=== PATIENT | male | born 1935 | race Caucasian/White ===

== ENCOUNTER 2018-08-28 12:03 | Emergency (ER) | payer MEDICARE, OTHER ==
[~2018-08-28] VITALS: Ht 172.7 cm; Wt 94.3 kg
[~2018-08-28 12:03] MED LIST: ASPIRIN81 MG PO
--- OUTSIDE RECORDS SUMMARY | 2018-08-28 12:04 | XMS REPORT ---
[facility] Address Unknown Phone Unavailable Care Team Providers Care Computer Forensic Examiner Name Role Phone Unavailable Unavailable Payers Payer Name Policy Type Policy Number Effective Date Expiration Date Problems This patient has no known problems. Allergies, Adverse Reactions, Alerts Allergy Name Allergy Type Status Severity Reaction(s) Onset Date Inactive Date Treating Clinician Comments No Known Allergies DA Active U 2018-08-27 00:00:00 No Known Drug Intolerances DA Active U 2012-01-08 00:00:00 Medications This patient has no known medications. Results Test Description Test Time Test Comments Text Results Atomic Results Result Comments URINALYSIS COMPLETE 2018-08-28 00:34:00 UA COLOR (test code=COLU) YELLOW YELLOW UA APPEARANCE (test code=APPU) HAZY CLEAR UA GLUCOSE DIPSTICK (test code=DGLUU) 50 (Trace) mg/dL NEGATIVE UA BILIRUBIN DIPSTICK (test code=BILU) 1 mg/dL (1+) mg/dL NEGATIVE UA KETONE DIPSTICK (test code=KETU) 5 (Trace) mg/dL NEGATIVE UA SPECIFIC GRAVITY (test code=SGU) 1.015 1.001-1.035 UA BLOOD DIPSTICK (test code=SONDRA) 25 (1+) Alex/uL NEGATIVE UA PH DIPSTICK (test code=SHIRLEY) 5.0 5.0-8.0 UA PROTEIN DIPSTICK (test code=PROU) 30 (1+) mg/dL Neg-15 UA UROBILINIOGEN DIPSTICK (test code=URO) 1 mg/dL 0.0-0.2 UA NITRITE DIPSTICK (test code=REMI) NEGATIVE NEGATIVE UA LEUKOCYTE ESTERASE DIPSTICK (test code=LEUU) 25 (Trace) uL NEGATIVE UA WBC (test code=WBCU) 0-5 per HPF 0-5 IN SOME URINARY TRACT INFECTIONS THERE MAY NOT BE ENOUGHWBCs IN THE URINE TO TRIGGER AN AUTOMATIC (REFLEX) URINECULTURE. A SEPERATE ORDER FOR URINE CULTURE IS RECOMMENDEDIF THERE IS STRONG SUPPORT FOR A URINARY TRACT INFECTIONCLINICALLY. UA RBC (test code=RBCU) 0-2 per HPF 0-5 UA EPITHELIAL CELLS (test code=EPIU) None seen per HPF Few UA BACTERIA (test code=BACU) TRACE per HPF NONE Urine Source? Clean CatchURINALYSIS [id number] 00:32:00* Test Item Value Reference Range Comments UA COLOR (test code=COLU) YELLOW YELLOW UA APPEARANCE (test code=APPU) HAZY CLEAR UA GLUCOSE DIPSTICK (test code=DGLUU) 50 (Trace) mg/dL NEGATIVE UA BILIRUBIN DIPSTICK (test code=BILU) 1 mg/dL (1+) mg/dL NEGATIVE UA KETONE DIPSTICK (test code=KETU) 5 (Trace) mg/dL NEGATIVE UA SPECIFIC GRAVITY (test code=SGU) 1.015 1.001-1.035 UA BLOOD DIPSTICK (test code=SONDRA) 25 (1+) Alex/uL NEGATIVE UA PH DIPSTICK (test code=SHIRLEY) 5.0 5.0-8.0 UA PROTEIN DIPSTICK (test code=PROU) 30 (1+) mg/dL Neg-15 UA UROBILINIOGEN DIPSTICK (test code=URO) 1 mg/dL 0.0-0.2 UA NITRITE DIPSTICK (test code=REMI) NEGATIVE NEGATIVE UA LEUKOCYTE ESTERASE DIPSTICK (test code=LEUU) 25 (Trace) uL NEGATIVE UA WBC (test code=WBCU) per HPF 0-5 Urine Source? Clean CatchBASIC METABOLIC [id number] 23:54:00* Test Item Value Reference Range Comments SODIUM (test code=NA) 138 mmol/L 135-148 POTASSIUM (test code=K) 3.7 mmol/L 3.5-5.1 CHLORIDE (test code=CL) 100 mmol/L 101-109 CARBON DIOXIDE (test code=CO2) 27.8 mmol/L 21-32 ANION GAP (test code=GAP) 14 mmol/L 10-20 GLUCOSE (test code=GLU) 198 mg/dL 74-106 BLOOD UREA NITROGEN (test code=BUN) 21 mg/dL 3-21 GLOMERULAR FILTRATION RATE (test code=GFR) > 60 mL/min >=60 Estimated GFR by using Modified MDRD formula.Chronic kidney disease is defined as either kidney damageor GFR <60 mL/min/1.73 m2 for >3 months. CREATININE (test code=CREAT) 1.15 mg/dL 0.55-1.3 BUN/CREATININE RATIO (test code=BUN/CREA) 18.3 10-20 CALCIUM (test code=CA) 8.3 mg/dL 8.4-10.2 HEPATIC FUNCTION [id number] 23:54:00* Test Item Value Reference Range Comments TOTAL PROTEIN (test code=PROT) 7.7 g/dL 6.5-8.4 ALBUMIN (test code=ALB) 3.5 g/dL 3.4-4.8 GLOBULIN (test code=GLOB) 4.2 G/DL 1-10 ALBUMIN/GLOBULIN RATIO (test code=A/G) 0.8 RATIO 0.75-1.50 BILIRUBIN TOTAL (test code=BILT) 0.40 mg/dL 0.0-1.0 BILIRUBIN DIRECT (test code=BILD) 0.10 mg/dL 0.0-0.30 SGOT/AST (test code=AST) 21 U/L 6-32 SGPT/ALT (test code=ALT) 29 U/L 12-78 Note: Change in REFERENCE RANGE due to new reagent method. ALKALINE PHOSPHATASE TOTAL (test code=ALKP) 83 U/L 38-126 [id number] 23:54:00* Test Item Value Reference Range Comments LIPASE (test code=LIP) 94 U/L 128-270 BASIC METABOLIC [id number] 23:44:00* Test Item Value Reference Range Comments SODIUM (test code=NA) 138 mmol/L 135-148 POTASSIUM (test code=K) 3.7 mmol/L 3.5-5.1 CHLORIDE (test code=CL) 100 mmol/L 101-109 CARBON DIOXIDE (test code=CO2) 27.8 mmol/L 21-32 ANION GAP (test code=GAP) 14 mmol/L 10-20 GLUCOSE (test code=GLU) 198 mg/dL 74-106 BLOOD UREA NITROGEN (test code=BUN) 21 mg/dL 3-21 GLOMERULAR FILTRATION RATE (test code=GFR) > 60 mL/min >=60 Estimated GFR by using Modified MDRD formula.Chronic kidney disease is defined as either kidney damageor GFR <60 mL/min/1.73 m2 for >3 months. CREATININE (test code=CREAT) 1.15 mg/dL 0.55-1.3 BUN/CREATININE RATIO (test code=BUN/CREA) 18.3 10-20 CALCIUM (test code=CA) 8.3 mg/dL 8.4-10.2 HEPATIC FUNCTION [id number] 23:44:00* Test Item Value Reference Range Comments TOTAL PROTEIN (test code=PROT) gram/dL 6.4-8.2 ALBUMIN (test code=ALB) g/dL 3.4-5.0 GLOBULIN (test code=GLOB) g/dL 2.7-4.2 ALBUMIN/GLOBULIN RATIO (test code=A/G) 0.75-1.50 BILIRUBIN TOTAL (test code=BILT) mg/dL 0.2-1.2 BILIRUBIN DIRECT (test code=BILD) mg/dL 0.0-0.20 SGOT/AST (test code=AST) IUnit/L 15-37 SGPT/ALT (test code=ALT) U/L 10-69 ALKALINE PHOSPHATASE TOTAL (test code=ALKP) IUnit/L 45-117 [id number] 23:44:00* Test Item Value Reference Range Comments LIPASE (test code=LIP) Unit/L 144-286 CBC W/O [id number] 23:31:00* Test Item Value Reference Range Comments WHITE BLOOD CELL (test code=WBC) 10.5 K/mm3 4.5-12.5 RED BLOOD CELL (test code=RBC) 4.38 mill/mm3 4.0-5.8 HEMOGLOBIN (test code=HGB) 13.3 gram/dL 13.0-17.5 HEMATOCRIT (test code=HCT) 40.4 % 42.0-52.0 MEAN CELL VOLUME (test code=MCV) 92.2 fL 80-98 MEAN CELL HGB (test code=MCH) 30.4 picogram 27.0-33.0 MEAN CELL HGB CONCETRATION (test code=MCHC) 32.9 gram/dL 33.0-36.0 RED CELL DISTRIBUTION WIDTH (test code=RDW) 15.2 % 11.6-16.2 RED CELL DISTRIBUTION WIDTH SD (test code=RDW-SD) 50.1 fL 39.2-49.5 PLATELET COUNT (test code=PLT) 221 K/mm3 150-450 MEAN PLATELET VOLUME (test code=MPV) 10.8 fL 6.7-11.0
[2018-08-28] MEDS ORDERED: KETOROLAC TROMETHAMINE 60 MG/2 ML VIAL IM ONE (14:15)
[2018-08-28 16:03] LABS: INFLUENZAE A&B ANTIGEN (RAPID) NEGATIVE (NEGATIVE)
--- NOTE | 2018-08-28 16:20 | Diagnostic Imaging Report ---
EXAMINATION: PA and lateral views of the chest. COMPARISON: None CLINICAL HISTORY: Cough DISCUSSION: Lines/tubes: None. Lungs: The lungs are well inflated and clear. No pneumonia or pulmonary edema. Pleura: No pleural effusion or pneumothorax. Heart and mediastinum: The cardiomediastinal silhouette is normal. Bones and soft tissues: No acute bony abnormalities. IMPRESSION: No acute cardiopulmonary abnormalities. Signed by: Dr. Roverto Michael M.D. on 08/28/2018 4:17 PM
[2018-08-28 16:24] LABS: STREPTOCOCCUS GRP A ANTIGEN NEGATIVE (NEGATIVE)
[2018-08-28] MEDS ORDERED: KETOROLAC TROMETHAMINE 30 MG/ML VIAL IM ONE (16:30)
[2018-08-28 16:53] VITALS: BP 164/91
== END 2018-08-28 17:06 | disposition home or self-care (01) ==
LOC: ER 12:03
DX: R50.9 Fever, unspecified (principal); R05 Cough; B34.9 Viral infection, unspecified; A08.0 Rotaviral enteritis; I10 Essential (primary) hypertension; E11.9 Type 2 diabetes mellitus without complications; E78.00 Pure hypercholesterolemia, unspecified
CPT/HCPCS: 36415; 71046; 82948; 83518; 87070; 87400; 99283; J1885

== ENCOUNTER 2019-03-25 18:02 | Observation (INO) | payer MEDICARE, OTHER ==
[~2019-03-25] VITALS: Ht 172.7 cm; Wt 95.4 kg
--- OUTSIDE RECORDS SUMMARY | 2019-03-25 18:05 | XMS REPORT | Clinical Summary ---
Author Author [facility] Address Unknown Phone Unavailable Care Team Providers Care Rental Representative Name Role Phone Olayinka Rowe MD PCP Allergies No Known Allergies Medications End Date Status Medication Sig Dispensed Refills Start Date Active atenolol (TENORMIN) 25 MG Take 25 mg by 0 tablet mouth daily. 9 Active atorvastatin (LIPITOR) 40 Take 40 mg by 0 MG tablet mouth daily. 9 Active celecoxib (CeleBREX) 200 0 MG capsule 9 Active fluticasone propionate 0 (CUTIVATE) 0.05 % cream 9 Active NOVOLOG FLEXPEN U-100 0 INSULIN 100 unit/mL (3 9 mL) insulin pen Active metFORMIN (GLUCOPHAGE) 0 1,000 mg tablet 9 Active pantoprazole (PROTONIX) 0 40 MG EC tablet 9 Active valACYclovir (VALTREX) 0 1000 MG tablet 9 Active valsartan-hydrochlorothia 0 zide (DIOVAN-HCT) 9 320-12.5 mg per tablet Active Problems Problem Noted Date Sensorineural hearing loss (SNHL) of both ears 01/07/2019 Bilateral impacted cerumen 01/07/2019 Encounters Care Team Description Date Type Specialty Fernie Benson MD Sensorineural hearing loss (SNHL) of both ears (Primary Dx); Bilateral impacted cerumen 01/07/2019 Office Visit Otolaryngology after 03/24/2018 Social History Date Tobacco Use Types Packs/Day Years Used Never Smoker Smokeless Tobacco: Never Used Drinks/Week oz/Week Comments Alcohol Use Never Alcohol Habits Answer Date Recorded How often do you have a drink containing alcohol? Never 01/07/2019 How many drinks containing alcohol do you have on Not asked a typical day when you are drinking? How often do you have six or more drinks on one Not asked occasion? Sex Assigned at Date Recorded Not on file Industry Job Start Date Occupation Not on file Not on file Not on file Travel End Travel History Travel Start No recent travel history available. Last Filed Vital Signs Reading Time Taken Comments Vital Sign 150/65 01/07/2019 9:41 AM CDT Blood Pressure 58 01/07/2019 9:41 AM CDT Pulse - - Temperature - - Respiratory Rate - - Oxygen Saturation - - Inhaled Oxygen Concentration 92.5 kg (204 lb) 01/07/2019 9:41 AM CDT Weight 172.7 cm (5' 8") 01/07/2019 9:41 AM CDT Height 31.02 01/07/2019 9:41 AM CDT Body Mass Index Plan of Treatment Care Team Description Date [place] [address] [id number] 07/01/2019 Office Visit Otolaryngology Health Maintenance Due Date Last Done Comments SHINGLES VACCINES (#1) 1984 65+ PNEUMOCOCCAL VACCINE 12/05/1999 (1 of 2 - PCV13) INFLUENZA VACCINE 02/11/2019 Procedures Comments Procedure Name Priority Date/Time Associated Diagnosis COMPREHENSIVE HEARING Routine 01/07/2019 Sensorineural hearing TEST 10:09 AM CDT loss (SNHL) of both ears after 03/24/2018 Results * Comprehensive hearing test (01/07/2019 10:09 AM CDT) after 03/24/2018 Insurance Type Payer Benefit Subscriber ID Effective Phone Address Plan / Dates Group HMO TEXAN[employer]US TEXAN[employer]US xxxxxxxxx [id number] MCR resent Advance Directives For more information, please contact: [phone] 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
[2019-03-25] MEDS ORDERED: ASPIRIN 81 MG CHEW TAB PO ONE (18:45)
[2019-03-25 18:58] LABS: BASOPHILS # (AUTO) 0.1 (0.0-0.1); BASOPHILS % 1.1 % (0.0-1.0); EOSINOPHILS # (AUTO) 0.3 (0.0-0.4); HEMOGLOBIN 11.5 g/dL (14.0-18.0); LYMPHOCYTES # (AUTO) 2.4 (1.0-3.2); LYMPHOCYTES % 26.6 % (18.0-39.1); MEAN CORPUSCULAR HEMOGLOBIN 28.5 pg (28-32); MEAN CORPUSCULAR HGB CONC 31.9 g/dL (31-35); MEAN CORPUSCULAR VOLUME 89.3 fL (81-99); MONOCYTES # (AUTO) 0.9 (0.2-0.8); MONOCYTES % 10.3 % (4.4-11.3); NEUTROPHILS # (AUTO) 5.3 (2.1-6.9); NEUTROPHILS % 58.7 % (38.7-80.0); PLATELET COUNT 270 x10e3/uL (140-360); RED BLOOD COUNT 4.03 x10e6/uL (4.3-5.7); RED CELL DISTRIBUTION WIDTH 14.8 % (11.7-14.4)
[2019-03-25 19:05] LABS: INR 0.89; PROTHROMBIN TIME 12.5 seconds (11.9-14.5)
[2019-03-25 19:06] LABS: PARTIAL THROMBOPLASTIN TIME 25.9 seconds (23.8-35.5)
[2019-03-25 19:15] LABS: ALBUMIN 3.4 g/dL (3.5-5.0); ALBUMIN/GLOBULIN RATIO 0.9 (0.8-2.0); ANION GAP 12.9 mmol/L (8-16); CREATININE, SERUM 1.18 mg/dL (0.72-1.25); POTASSIUM 3.9 mmol/L (3.5-5.1)
[2019-03-25 19:21] LABS: CREATINE KINASE MB 2.3 ng/mL (0-5.0)
--- NOTE | 2019-03-25 19:40 | Diagnostic Imaging Report ---
EXAMINATION: CHEST SINGLE (NOT PORTABLE) INDICATION: ^CHEST PAIN ^[id number] ^[id number] COMPARISON: Chest radiograph 08/28/2018 FINDINGS: AP view TUBES and LINES: None. LUNGS: Lungs are well inflated. Mild central pulmonary vascular congestion. No new consolidations. Minimal atelectasis in the left lower lobe. PLEURA: No pleural effusion or pneumothorax. HEART AND MEDIASTINUM: Prominent cardiac silhouette. Mild calcifications of the aortic arch. BONES AND SOFT TISSUES: No acute osseous lesion. Soft tissues are unremarkable. UPPER ABDOMEN: No free air under the diaphragm. IMPRESSION: Bilateral central pulmonary vascular congestion. Signed by: Dr. Amalia Osuna M.D. on 03/25/2019 7:37 PM
[2019-03-25] MEDS ORDERED: SODIUM CHLORIDE FLUSH 10 ML SYR INJ PRN (21:15)
[2019-03-25] MEDS ORDERED: MORPHINE SULFATE 2 MG/ML SYR 1ML IV PRN (21:15)
[2019-03-25] MEDS ORDERED: ONDANSETRON HCL INJ 2MG/ML 2ML 2 MG/ML VIAL IV PRN (21:15)
[2019-03-25] MEDS ORDERED: DEXTROSE 50% SYRINGE 50 ML IV PRN (21:15)
--- OUTSIDE RECORDS SUMMARY | 2019-03-25 21:20 | XMS REPORT | Clinical Summary ---
Author Author [facility] Address Unknown Phone Unavailable Care Team Providers Care Personal Clothing Laundry Aide Name Role Phone Olayinka Rowe MD PCP [...] Description Date [place] [address] [id number] 07/01/2019 Office Visit Otolaryngology Health Maintenance Due [...] Advance Directives For more information, please contact: [phone] Patient Improvement Leader Explanation Type Date Recorded Advance Directives, Living Will and Medical Power of Dental Treatment Coordinator
[2019-03-25] MEDS: FAMOTIDINE 20 MG/2 ML VIAL IV SCH (21:34)
[2019-03-25] MEDS ORDERED: VALSART/HCTZ PO (21:47)
[2019-03-25] MEDS ORDERED: ATENOLOL25 MG PO (21:47)
[2019-03-25] MEDS ORDERED: PANTOPRAZOLE SO40 MG PO (21:47)
[2019-03-25] MEDS ORDERED: METFORMIN HCL1000 MG PO (21:47)
[2019-03-25] MEDS ORDERED: CELEBREX200 MG PO (21:47)
[2019-03-25] MEDS ORDERED: LEVEMIR100 UNIT/1 SQ (21:47)
[2019-03-25] MEDS ORDERED: ULTRAM 50MG50 MG PO (21:47)
[2019-03-25] MEDS ORDERED: NOVOLOG100 UNITS1 SQ (21:47)
[2019-03-25] MEDS ORDERED: VALACYCLOVIR1000 MG PO (21:47)
[2019-03-25] MEDS ORDERED: ZYRTEC10 M3 PO (21:50)
[2019-03-25] MEDS ORDERED: MULTI-VITAMIN1 EACH PO (21:51)
[2019-03-25] MEDS: INSULIN REGULAR, HUMAN 100 UNIT/1 ML 3ML VIAL SQ SCH (22:38)
[2019-03-26] MEDS ORDERED: HYDRALAZINE HCL 20 MG/ML VIAL IV STA (02:12)
[2019-03-26 03:53] LABS: CREATINE KINASE MB 2.1 ng/mL (0-5.0)
--- NOTE | 2019-03-26 05:26 | NUR ---
pt request blood sugar be checked. pt asymptomatic. denies symptoms of low blood sugar. pt states that wants sugar checked because "im just curious what it is." bs checked per pt request, bs 268.
[2019-03-26 06:01] LABS: CREATINE KINASE 83 IU/L (30-200)
[2019-03-26] MEDS ORDERED: HYDRALAZINE HCL 20 MG/ML VIAL IV PRN (06:30)
[2019-03-26 06:31] LABS: CHOL/HDL RATIO 7.5 (3.9-4.7)
[2019-03-26] MEDS ORDERED: LORATADINE 10 MG TAB PO PRN (07:15)
[2019-03-26] MEDS: INSULIN REGULAR, HUMAN 100 UNIT/1 ML 3ML VIAL SQ SCH ×4 (07:37→22:33)
[2019-03-26] MEDS ORDERED: ASPIRIN 81 MG ENTERIC COATED PO SCH (09:00)
[2019-03-26] MEDS: FAMOTIDINE 20 MG/2 ML VIAL IV SCH ×2 (09:48→22:33)
[2019-03-26] MEDS: ASPIRIN 81 MG CHEW TAB PO SCH (09:51)
[2019-03-26] MEDS: PANTOPRAZOLE SOD 40 MG TABEC PO SCH (09:51)
[2019-03-26] MEDS: MULTIVITAMINS/MINERALS TAB PO SCH (09:53)
--- NOTE | 2019-03-26 11:11 | NUR ---
RECEIVED REPORT FROM DAYNA SANCHEZ; PT RESTING IN BED, SON AT BEDSIDE, NO NEEDS VOICED AT THIS TIME, BED LOW/LOCKED, SIDE RAILS UP, CALL LIGHT IN EASY REACH, WILL CONTINUE TO MONITOR.
--- NOTE | 2019-03-26 11:22 | NUR ---
PT VOICING CONCERNS WITH BLOOD PRESSURE GOING UP, MEDICATED PER eMAR.
--- NOTE | 2019-03-26 11:26 | NUR ---
PT VOICING CONCERNS, STATING HE HAS VOIDED 12 TIMES SINCE ARRIVAL AND THIS IS NOT HIS NORM, STATES "I'M NOT EVEN DRINKING THAT MUCH WATER", WILL CONTINUE TO MONITOR.
--- NOTE | 2019-03-26 11:35 | NUR ---
DR. LAM AT BEDSIDE AND UPDATING PT WITH PLAN OF CARE AND CONSULTATION WITH CARDIO FOR CONTINUITY OF CARE, PT AND SON AT BEDSIDE VERBALIZED UNDERSTANDING.
--- NOTE | 2019-03-26 11:58 | NUR ---
ECHOVASCULAR TECH AT BEDSIDE FOR EXAM AT THIS TIME.
[2019-03-26] MEDS: FUROSEMIDE 40 MG TAB PO SCH (12:40)
[2019-03-26] MEDS: VALSARTAN 160 MG TAB PO SCH (12:45)
[2019-03-26] MEDS: HYDROCHLOROTHIAZIDE 25 MG TAB PO SCH (12:45)
[2019-03-26 13:29] VITALS: BP 143/54
[2019-03-26 14:19] VITALS: BP 143/54
[2019-03-26 14:29] LABS: CREATINE KINASE MB 2.1 ng/mL (0-5.0)
--- NOTE | 2019-03-26 14:39 | NUR ---
notified regarding nurse monitoring rhythm. No new orders received at this time.
[2019-03-26 15:35] VITALS: BP 135/63
[2019-03-26] MEDS ORDERED: ENOXAPARIN 30 MG/0.3 ML SYR SC SCH (17:00)
--- NOTE | 2019-03-26 18:00 | Consultation ---
DATE OF CONSULTATION: Cardiology Consultation CHIEF COMPLAINT: The patient is an 83-year-old with shortness of breath. HISTORY OF PRESENT ILLNESS: The patient is an 83-year-old, who came to the emergency room with some dizziness and dyspnea. There was no reported chest pain. No nausea. No vomiting. No abdominal pain. No fevers. PAST MEDICAL HISTORY: Significant for: 1. Hypertension. 2. Diabetes mellitus. HOME MEDICATIONS: Include: 1. Atenolol. 2. Celebrex. 3. Insulin. 4. Metformin. 5. Protonix. 6. Valacyclovir. SOCIAL HISTORY: The patient does not drink, does not smoke. FAMILY HISTORY: There is no known family history of coronary artery disease. PHYSICAL EXAMINATION: GENERAL: The patient is a well-developed, well-nourished male, in no obvious distress. VITAL SIGNS: Included temperature of 98.8, blood pressure was 143/54, pulse was 79. HEAD, EARS, EYES, NOSE, AND THROAT: The patient's cranium was normocephalic and atraumatic. Extraocular muscles were intact. Sclerae were anicteric. Pupils were equal, round, reactive to light. There is no pallor or cyanosis of the oral mucosa. There is no erythema or edema of the throat. NECK: Supple. No jugular venous distention. No carotid bruits. CHEST: Clear to auscultation and percussion. CARDIAC: Demonstrated normal S1 and S2 with no murmurs, rubs, or gallops. ABDOMEN: Demonstrated good bowel sounds. No tenderness and no masses. EXTREMITIES: There is no clubbing, no cyanosis, and no edema. NEUROLOGIC: The patient was alert and oriented x3. Cranial nerves II through XII are intact. Motor strength was +5/+5 in all limbs. The patient's EKG demonstrated sinus bradycardia with some nonspecific ST and T-wave changes. IMPRESSION: The patient is an 83-year-old admitted with some dizziness and shortness of breath. The patient had no chest pain. The patient's cardiac enzymes are all negative. The patient's EKG is unremarkable. The patient's echocardiogram shows normal left ventricular size and function with an ejection fraction of 55%. There is no active cardiac issues at this time and the patient does not require further cardiac workup at this point. MD SYED Berry/SHAYLEE /[id number]
--- NOTE | 2019-03-26 18:30 | History and Physical ---
CHIEF COMPLAINT: Chest pressure. HISTORY OF PRESENT ILLNESS: An 83-year-old male, history of hypertension, type 2 diabetes, presented to the emergency room with his as his came in with complaints of chest pain and which while he was in the emergency room, he became very anxious and he started complaining of chest pain. He reports the chest pain is more like chest pressure, substernally radiating to his right shoulder and arm. Denies any associated nausea, vomiting, any diaphoresis. He denies any abdominal pain, cough, congestion, any recent sickness. I discussed the plan of care with the son at bedside as well as the daughter as well as the patient. They report he is currently doing much better now with no complaints. They are reporting that he does get very anxious when his is in the hospital and he starts to complain of similar findings. REVIEW OF SYSTEMS: Pertinent positive: Chest pressure. Pertinent negatives: Denies any palpitation, nausea, vomiting, diarrhea, dysuria, hematuria, frequency, urgency, lightheadedness, dizziness, abdominal pain, headaches, shortness of breath, cough, congestion, fever, or any other complaints. The rest of the 14-point review of systems are reviewed with the patient and are negative. ALLERGIES: NO KNOWN DRUG ALLERGIES. HOME MEDICATIONS: He takes: 1. Aspirin 81 mg daily. 2. Atenolol 25 mg daily. 3. Zyrtec 10 mg daily. 4. Levemir 30 units at bedtime. 5. Multivitamin. 6. Protonix. 7. Valsartan. 8. Hydrochlorothiazide, unsure of the dose recorded, but it is one tab daily. 9. He takes insulin premeal t.i.d. 10. Tramadol. 11. Celebrex. 12. Metformin. 13. Valacyclovir. PAST MEDICAL HISTORY: Type 2 diabetes, hypertension, allergies, acid reflux. PAST SURGICAL HISTORY: Reports none. FAMILY HISTORY: Hypertension, diabetes. SOCIAL HISTORY: No drugs, no alcohol, does not smoke. He is . He has children. Good social support. PHYSICAL EXAMINATION: VITAL SIGNS: Temperature is 97.6, pulse 53, respiratory rate is 16, blood pressure is 183/64, pulse ox 99% on room air. GENERAL: Not in acute distress, alert, oriented x3. Cooperative on examination. HEENT: Head is normocephalic and atraumatic. Eyes; pupils are equal, round, and reactive to light bilaterally. Extraocular movements intact bilaterally. Neck; supple. Good range of motion. Throat; evidence of erythema or exudates in the posterior pharynx. Has poor dentition. PULMONARY: Clear to auscultation bilaterally. No wheezing, no rales, no rhonchi, no crackles appreciated. CARDIOVASCULAR: Positive S1 and S2. No murmurs, rubs, or gallops. ABDOMEN: Soft, nondistended, and nontender to palpation. Bowel sounds present. MUSCULOSKELETAL: Strength is 5/5 throughout. No evidence of any muscle deficits on examination. No weakness appreciated. NEUROLOGICAL: Cranial nerves II through XII grossly intact. No evidence of any neurological deficits on exam. SKIN: Intact. Warm to touch. Good cap refill. PSYCHIATRIC: Normal affect and mood. EXTREMITIES: No edema. Good range of motion throughout. LABORATORY FINDINGS: Show white count 8.9, hemoglobin 11.5, hematocrit 36, platelets of 270. Coagulation; PT 12, INR 0.89, PTT 25. Chemistry; sodium is 137, potassium 3.9, chloride is 99, bicarbonate is 29, anion gap of 12, BUN 14, creatinine is 1.1, glucose currently point of care 324 given insulin. Troponins were all negative. LDL 106, albumin 3.4. Microbiology, none. IMAGING STUDIES: Bilateral central pulmonary vascular congestion. IMPRESSION: 1. Chest pain, rule out likely atypical in nature. 2. Type 2 diabetes. 3. Hypertension. PLAN: At this time, I feel that the patient's underlying chest pressure is likely atypical from underlying anxiety. Family reports that when his is in the hospital, he starts to mimic the same symptoms that she has, but despite that he does see a district wire chief as an outpatient. He does have risk factors. At this time, Cardiology was consulted. Cardiac enzymes were trended, found to be negative. EKG showed no acute findings. Continue with cardioprotective medications, aspirin, ARB, and oral statin. Await for Cardiology recommendations. Resume same home medications, I give first doses of antihypertensive medications now. Put him on Lovenox for DVT prophylaxis, encourage ambulation, cardiac diet. If he does well and cleared by Cardiology, discharge home tomorrow. MD KATIE Acuna/JASPALL /[id number]
--- NOTE | 2019-03-26 19:00 | NUR ---
received report from day nurse. patient is resting comfortably in bed. bed is in lowest position and call haro is within reach. will continue to monitor patient.
[2019-03-26 20:00] VITALS: BP 157/69
[2019-03-26] MEDS ORDERED: INSULIN GLARGINE 100 UNITS/ML VIAL SQ SCH (21:00)
[2019-03-26] MEDS ORDERED: NON-FORMULARY MEDICATION (Insulin Detemir (Levemir) 30 UNITS) SQ SCH (21:00)
[2019-03-26] MEDS ORDERED: ATORVASTATIN 10 MG TAB PO SCH (21:00)
[2019-03-27] VITALS: BP 158/74
[2019-03-27 04:00] VITALS: BP 138/90
[2019-03-27 05:28] LABS: BASOPHILS # (AUTO) 0.1 (0.0-0.1); EOSINOPHILS # (AUTO) 0.2 (0.0-0.4); EOSINOPHILS % 2.1 % (0.0-6.0); HEMATOCRIT 40.5 % (38.2-49.6); LYMPHOCYTES # (AUTO) 2.2 (1.0-3.2); LYMPHOCYTES % 19.4 % (18.0-39.1); MEAN CORPUSCULAR HEMOGLOBIN 28.3 pg (28-32); MEAN CORPUSCULAR HGB CONC 32.1 g/dL (31-35); MONOCYTES # (AUTO) 1.1 (0.2-0.8); MONOCYTES % 9.5 % (4.4-11.3); NEUTROPHILS # (AUTO) 7.5 (2.1-6.9); NEUTROPHILS % 67.5 % (38.7-80.0); PLATELET COUNT 279 x10e3/uL (140-360); RED CELL DISTRIBUTION WIDTH 14.8 % (11.7-14.4)
[2019-03-27 05:56] LABS: ANION GAP 14.7 mmol/L (8-16); BLOOD UREA NITROGEN 18 mg/dL (7-26); BUN/CREATININE RATIO 17 (6-25); CALCIUM 9.3 mg/dL (8.4-10.2); CARBON DIOXIDE 30 mmol/L (22-29); CHLORIDE 102 mmol/L (98-107); CHOL/HDL RATIO 7.3 (3.9-4.7); CHOLESTEROL 183 MD/DL (0-199); CREATININE, SERUM 1.03 mg/dL (0.72-1.25); EST GLOMERULAR FILTRATION RATE > 60 ML/MIN (60-); GLUCOSE 124 mg/dL (74-118); HDL CHOLESTEROL 25 MG/DL (40-60); LDL CHOLESTEROL 118 MG/DL (60-130); POTASSIUM 3.7 mmol/L (3.5-5.1); SODIUM 143 mmol/L (136-145); TRIGLYCERIDES 198 MG/DL (0-149)
--- NOTE | 2019-03-27 06:53 | NUR ---
report given to day nurse. patient is resting comfortably in bed. bed is in lowest position and call light is within reach.
[2019-03-27 07:58] VITALS: BP 173/84
[2019-03-27] MEDS ORDERED: NON-FORMULARY MEDICATION (Atenolol 25 MG) PO SCH (09:00)
[2019-03-27] MEDS: PANTOPRAZOLE SOD 40 MG TABEC PO SCH (09:00)
[2019-03-27] MEDS: HYDROCHLOROTHIAZIDE 25 MG TAB PO SCH (09:00)
[2019-03-27] MEDS: MULTIVITAMINS/MINERALS TAB PO SCH (09:00)
[2019-03-27] MEDS: VALSARTAN 160 MG TAB PO SCH (09:00)
[2019-03-27] MEDS ORDERED: VALSART PO SCH (09:00)
[2019-03-27] MEDS ORDERED: HCTZ PO SCH (09:00)
[2019-03-27] MEDS: ASPIRIN 81 MG CHEW TAB PO SCH (09:00)
[2019-03-27] MEDS ORDERED: ATENOLOL 50 MG TAB PO SCH (09:00)
[2019-03-27] MEDS: FUROSEMIDE 40 MG TAB PO SCH (09:00)
[2019-03-27] MEDS: FAMOTIDINE 20 MG/2 ML VIAL IV SCH (09:15)
[2019-03-27 12:02] VITALS: BP 150/66
[2019-03-27 16:06] VITALS: BP 165/79
--- NOTE | 2019-03-28 11:37 | Discharge Summary ---
FINAL DISCHARGE DIAGNOSES: 1. Chest pain, atypical in nature, ruled out for acute coronary syndrome. No further workup needed by Cardiology. 2. Type 2 diabetes. 3. Hypertension. 4. Underlying anxiety. CONSULTANTS: Cardiology. PHYSICAL EXAMINATION: VITAL SIGNS: Temperature is 96.9, pulse 64, respirations is 18, blood pressure 150/66, pulse ox 98% on room air. LABORATORY FINDINGS: Show white count was 11, hemoglobin 13, hematocrit 40, platelets of 279. Coagulation PT 12, INR 0.89, PTT 25. Chemistry sodium 143, potassium 3.7, chloride 102, bicarb 30, anion gap of 14. BUN is 18, creatinine is 1, glucose 124, and calcium is 9.3. LDL was 118. Troponins were all negative. CK is 80. LFTs within normal range. MICROBIOLOGY: None. IMAGING STUDIES: Chest x-ray, bilateral pulmonary vascular congestion. HOSPITAL COURSE: An 83-year-old male, came into the emergency room with complaints of chest pain. He initially came in for his . She was complaining of chest pain, but while in the ER, he started complaining of chest pain and was further worked up and admitted. The patient admitted under observation. Cardiology was consulted. EKG showed no acute findings. No alarms on cardiac telemetry. A 2D echo shows an EF of 55%. His cardiac enzymes were found to be negative. No further cardiac workup needed by Cardiology and cleared the patient for discharge to home. The patient was otherwise doing well. He had no other complaints. His chest pain was all atypical in nature. He is back to normal baseline. All his home medications were restarted. On the day of discharge, vital signs were stable, labs reviewed and stable. The patient is seen and evaluated, examined thoroughly on the day of discharge. No other complaints. The patient verbalized understanding and agrees to plan of care to follow up accordingly as an outpatient with primary care physician in 1 week and the milk of lime slaker in 2 weeks' time. MEDICATIONS: See med reconciliation form. DISPOSITION: To home. CONDITION: Stable. DIET: Heart healthy. In the event of any worsening symptoms, the patient was advised to come back to the ED for further evaluation. Discharge summary took greater than 35 minutes. MD KATIE Acuna/JASPALL /[id number]
[2019-04-07] MEDS ORDERED: NOVOLOG MI100 UNIT/1 INJ (12:38)
[2019-04-07] MEDS ORDERED: VITAMIN D35000 UNI1 PO (12:43)
[2019-04-07] MEDS ORDERED: LEXAPRO10 MG PO (12:43)
[2019-04-07] MEDS ORDERED: FAMOTIDINE20 MG PO (12:43)
== END 2019-03-27 16:57 | disposition home or self-care (01) ==
LOC: ER 18:02 → ERHOLD 21:12 → IMCU 03-26 12:40
PROVIDERS: ADMIT Internal Medicine; ATTEND Internal Medicine
DX: R07.89 Other chest pain (principal); E11.9 Type 2 diabetes mellitus without complications; I10 Essential (primary) hypertension; R00.1 Bradycardia, unspecified; F41.9 Anxiety disorder, unspecified
CPT/HCPCS: 36415 ×2; 71045; 80048; 80053; 80061 ×2; 82550 ×2; 82553 ×2; 82948 ×3; 83036; 84484 ×2; 85025 ×2; 85610; 85730; 93005; 93306; 96374; 99285; G0378 ×3; J0360; J1650; J1815; J1817; S0164 ×2

== ENCOUNTER → 2019-04-09 | Day surgery (SDC) | payer OTHER ==
[~2019-04-09] MED LIST changes: +ATENOLOL25 MG PO; +CELEBREX200 MG PO; +FAMOTIDINE20 MG PO; +FENTANYL CITRATE/PF 100MCG/2 ML INJ ONE; +LEVEMIR100 UNIT/1 SQ; +LEXAPRO10 MG PO; +METFORMIN HCL1000 MG PO; +MULTI-VITAMIN1 EACH PO; +NOVOLOG MI100 UNIT/1 INJ; +NOVOLOG100 UNITS1 SQ; +PANTOPRAZOLE SO40 MG PO; +PROPOFOL IV EMULSION 10 MG/ML 50 ML VIAL ONE; +ULTRAM 50MG50 MG PO; +VALACYCLOVIR1000 MG PO; +VALSART/HCTZ PO; +VITAMIN D35000 UNI1 PO; +ZYRTEC10 M3 PO
--- OUTSIDE RECORDS SUMMARY | 2019-04-09 05:20 | XMS REPORT | Clinical Summary ---
Author Author [facility] Address Unknown Phone Unavailable Care Team Providers Care Mis Director Name Role Phone Olayinka Rowe MD PCP [...] impacted cerumen 01/07/2019 Office Visit Otolaryngology after 04/08/2018 Social History Date Tobacco Use Types Packs/Day [...] Description Date [place] [address] [id number] 07/01/2019 Office Visit Otolaryngology Health Maintenance Due Date Last Done Comments SHINGLES VACCINES (#1) 1984 65+ PNEUMOCOCCAL VACCINE 12/05/1999 (1 of 2 - PCV13) INFLUENZA VACCINE 02/11/2019 Procedures Comments Procedure Name Priority Date/Time Associated Diagnosis COMPREHENSIVE HEARING Routine 01/07/2019 Sensorineural hearing TEST 10:09 AM CDT loss (SNHL) of both ears after 04/08/2018 Results * Comprehensive hearing test (01/07/2019 10:09 AM CDT) after 04/08/2018 Insurance Type Payer Benefit Subscriber ID Effective Phone Address Plan / Dates Group HMO [employer] TEXAN[employer]US xxxxxxxxx 2018-P MCR resent Advance Directives For more information, please contact: [phone] 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
[2019-04-09 07:45] VITALS: BP 154/76
== END | disposition home or self-care (01) ==
LOC: OR 05:17
PROVIDERS: ATTEND Internal Medicine Gastroenterology
DX: K29.70 Gastritis, unspecified, without bleeding (principal); K22.2 Esophageal obstruction; K44.9 Diaphragmatic hernia without obstruction or gangrene; Z71.3 Dietary counseling and surveillance; E66.9 Obesity, unspecified; I10 Essential (primary) hypertension; E11.9 Type 2 diabetes mellitus without complications; Z79.82 Long term (current) use of aspirin; Z79.4 Long term (current) use of insulin; Z79.84 Long term (current) use of oral hypoglycemic drugs; Z68.33 Body mass index [BMI] 33.0-33.9, adult
CPT/HCPCS: 36415; 43239; 82948; J3010